=== PATIENT | female | born 1955 | race Caucasian/White ===

== ENCOUNTER 2019-11-27 01:21 | Outpatient (CLI) | payer MEDICAID, SELFPAY ==
--- NOTE | 2019-11-27 | DI.NM_ITS ---
EXAM: NM BONE SCAN WHOLE BODY GRP CLINICAL HISTORY: BREAST CA, STAGING EXAM,C50.212,Z17.0. TECHNIQUE: Injected Dose: 25 mCi Tc-99m MDP Delayed Images: 2-3 hours. COMPARISON: CT CT CHEST/ABD/PELVIS W/CONTRAST-M2 from 10/04/2019 FINDINGS: Bilateral renal excretion is identified. There are multiple areas of increased radiotracer uptake in the axial and appendicular skeleton. Findings are consistent with metastatic disease. There are are as noted in the skull, ribs, pelvis and spine. IMPRESSION: 1. Findings consistent with osseous metastatic disease. DATA REPOSITORY:
== END 2019-11-27 01:41 ==
PROVIDERS: PCP Internal Medicine; Visit Provider Internal Medicine Medical Oncology
DX: C50.212 Malignant neoplasm of upper-inner quadrant of left female breast (principal); Z17.0 Estrogen receptor positive status [ER+]
CPT/HCPCS: 78306